=== PATIENT | male | born 1965 | race Two or more races ===

== ENCOUNTER 2024-12-30 15:39 | Emergency (ER) | payer MEDICAID, OTHER ==
[~2024-12-30] VITALS: Ht 172.7 cm; Wt 85.3 kg
--- NOTE | 2024-12-30 16:04 | ED.PDOC ---
Eye-HPI HPI Comments 59 year old male with PMHx DM presents to ED with chief complaint blurry vision since 1000 today. Pt denies eye pain. Pt denies use of contacts but does wear reading glasses. Pt states his PCP is out office and he needs Metformin refilled. Pt last took his Metformin yesterday. No other signs/symptoms or history reported. Chief Complaint: Eye Problem Time Seen by MD: 15:55 Reviewed Notes: Nurses Notes, Medications, Allergies Allergies: Coded Allergies: NO KNOWN ALLERGIES (Unverified , 12/30/24) Home Meds Reported Medications Metformin Hydrochloride (Metformin Hcl) 500 Mg Tab, 1000 MG PO IBID for 30 Days, MG 12/30/24 Information Source: Patient Mode of Arrival: Ambulatory Timing: Hours Duration: Since onset Prehospital treatment: None Eye Location: Bilateral Lids: Normal Conjunctiva: Normal Cornea: Normal Pupils: Normal EOM: Normal Onset: Spontaneous Throat Exposed to: None History of: None Modifying factors: Nothing Associated signs and symptoms: None Past Medical History PAST MEDICAL HISTORY: DM Surgical History: Denies all surgeries Family History Family History: Unknown Social History Smoker: Non-Smoker Alcohol: Denies ETOH Use Drugs: Denies Drug Use Lives In: Home Constitutional: denies: chills, diaphoresis, fatigue, fever, malaise, sweats, weakness, others EENTM: reports: blurred vision; denies: double vision, ear bleeding, ear discharge, ear drainage, ear pain, ear ringing, eye pain, eye redness, hearing loss, mouth pain, mouth swelling, nasal discharge, nose bleeding, nose congestion, nose pain, photophobia, tearing, throat pain, throat swelling, voice changes, others Respiratory: denies: cough, hemoptysis, orthopnea, SOB at rest, shortness of breath, SOB with excertion, stridor, wheezing, others Cardiovascular: denies: chest pain, dizzy spells, diaphoresis, Dyspnea on exertion, edema, irregular heart beat, left arm pain, lightheadedness, palpitat ions, PND, syncope, others Gastrointestinal: denies: abdomen distended, abdominal pain, blood streaked bow els, constipated, diarrhea, dysphagia, difficulty swallowing, hematemesis, melena, nausea, poor appetite, poor fluid intake, rectal bleeding, rectal pain, vomiting, others Genitourinary: denies: burning, dysuria, flank pain, frequency, hematuria, incontinence, penile discharge, penile sore, pain, testicle pain, testicle swelling, urgency, others Neurological: denies: dizziness, fainting, headache, left sided numbness, left sided weakness, numbness, paresthesia, pre-existing deficit, right sided numbness, right sided weakness, seizure, speech problems, tingling, tremors, weakness, others Musculoskeletal: denies: back pain, gout, joint pain, joint swelling, muscle pain, muscle stiffness, neck pain, others Integumetry: denies: bruises, change in color, change in hair/nails, dryness, laceration, lesions, lumps, rash, wounds, others Allergic/Immunocompromised: denies: Difficulty Healing, Frequent Infections, Hives, Itching, others Hematologic/Lymphatic: denies: anemia, blood clots, easy bleeding, easy bruising, swollen glands, others Endocrine: denies: excessive hunger, excessive sweating, excessive thirst, excessive urination, flushing, intolerance to cold, intolerance to heat, unexplained weight gain, unexplained weight loss, others Psychiatric: denies: anxiety, bipolar disorder, depression, hopeless, panic disorder, schizophrenia, sleepless, suicidal, others All Other Systems: Reviewed and Negative Physical Exam General Appearance: Mild Distress (Patient was in moderate distress due to concerns about visual change.), Normal HEENT: Normal ENT Inspection, Pharynx Normal, TMs Normal, Other (Unremarkable evaluation of bilateral globes.) Neck: Full Range of Motion, Non-Tender, Normal, Normal Inspection Respiratory: Chest Non-Tender, Lungs Clear, No Accessory Muscle Use, No Respiratory Distress, Normal Breath Sounds Cardiovascular: No Edema, No JVD, No Murmur, No Gallop, Normal Peripheral Pulses, Regular Rate/Rhythm Breast Exam: Deferred Gastrointestinal: No Organomegaly, Non Tender, No Pulsatile Mass, Normal Bowel Sounds, Soft Genitalia: Deferred Pelvic: Deferred Rectal: Deferred Extremities: No calf tenderness, Normal capillary refill, Normal inspection, Normal range of motion, Non-tender, No pedal edema Musculoskeletal : Apperance: Normal Neurologic: Alert, No Motor Deficits, Normal Affect, Normal Mood, No Sensory Deficits Cerebellar Function: Normal Reflexes: Normal Skin: Dry, Normal Color, Warm Lymphatic: No Adenopathy Was a procedure done? Was a procedure done?: No EENT DIFF Eye: Other (Vitreous floater, intraorbital neoplasm, optic nerve compression, poorly controlled diabetes myelitis) Ear: N/A Nose: N/A Mouth: N/A Sore Throat: N/A X-Ray, Labs, Meds, VS Vital Signs Date Time Temp Pulse Resp B/P (MAP) Pulse Ox O2 Delivery O2 Flow Rate FiO2 12/30/24 15:59 97.6 73 20 139/78 (98) 95 97.6 Lab Test 12/30/24 18:57 12/30/24 16:07 12/30/24 15:54 Range/Units Urine Color Light-yellow Yellow Urine Clarity Clear Clear Urine pH 5.0 5.0-9.0 Urine Specific [place] 1.029 1.001-1.035 Urine Protein Negative Negative Urine Ketones Negative Negative Urine Blood Negative Negative /uL Urine Nitrite Negative Negative Urine Bilirubin Negative Negative Urine Urobilinogen Normal Negative mg/dL Urine Leukocyte Esterase Negative Negative /uL Urine RBC <1 0 - 3 /hpf Urine Microscopic WBC < 1 0-3 /HPF Urine Squamous Epithelial Cells None seen <5 /hpf Urine Bacteria None seen None Seen /hpf Urine Glucose 4+ H Normal mg/dL Urine Opiates Screen Neg NEGATIVE Urine Fentanyl Screen Neg NEGATIVE Urine Barbiturates Screen Neg NEGATIVE Urine Phencyclidine Screen Neg NEGATIVE Urine Amphetamines Screen Neg NEGATIVE Urine Benzodiazepines Screen Neg NEGATIVE Urine Cocaine Screen Neg NEGATIVE Urine Cannabinoids Screen Neg NEGATIVE White Blood Count 8.7 4.4-10.8 10^3/uL Red Blood Count 4.94 4.5-5.90 10^6/uL Hemoglobin 15.1 13.5-17.5 g/dL Hematocrit 44.3 41.0-53.0 % Mean Corpuscular Volume 89.8 80.0-100.0 fL Mean Corpuscular Hemoglobin 30.6 28.0-32.0 pg Mean Corpuscular Hemoglobin Concent 34.1 32.0-36.0 g/dL Red Cell Distribution Width 12.8 11.8-14.3 % Platelet Count 240 140-450 10^3/uL Mean Platelet Volume 9.0 6.9-10.8 fL Neutrophils (%) (Auto) 55.9 37.0-80.0 % Lymphocytes (%) (Auto) 35.0 10.0-50.0 % Monocytes (%) (Auto) 7.0 0.0-12.0 % Eosinophils (%) (Auto) 1.1 0.0-7.0 % Basophils (%) (Auto) 1.0 0.0-2.0 % Neutrophils # (Auto) 4.9 1.6-8.6 10 ^3/uL Lymphocytes # (Auto) 3.0 0.4-5.4 10 ^3/uL Monocytes # (Auto) 0.6 0-1.3 10 ^3/uL Eosinophils # (Auto) 0.1 0-0.8 10 ^3/uL Basophils # (Auto) 0.1 0-0.2 10 ^3/uL Nucleated Red Blood Cells 0.2 % Sodium Level 136 136-145 mmol/L Potassium Level 4.4 3.5-5.1 mmol/L Chloride Level 99 98-107 mmol/L Carbon Dioxide Level 29 20-31 mmol/L Anion Gap 8 5-15 Blood Urea Nitrogen 15 9-23 mg/dL Creatinine 1.03 0.700-1.30 mg/dL Glomerular Filtration Rate Calc 84 >90 mL/min BUN/Creatinine Ratio 14.6 10.0-20.0 Serum Glucose 303 H 74-106 mg/dL Calcium Level 10.2 8.7-10.4 mg/dL Total Bilirubin 0.4 0.2-1.0 mg/dL Aspartate Amino Transferase (AST) 25 13-40 U/L Alanine Aminotransferase (ALT) 34 7-40 U/L Alkaline Phosphatase 119 H 46-116 U/L Total Protein 7.6 5.7-8.2 g/dL Albumin 4.7 3.2-4.8 g/dL Lipase 40 12-53 U/L Plasma/Serum Blood Alcohol < 3.0 <10 mg/dL POC Glucose 287 H 70-106 mg/dl [address] [address] Ph: [phone] DIAGNOSTIC IMAGING Diagnostic Imaging Report : [id number] Signed PATIENT: STEFANIA LANG ACCT: [id number] UNIT: [id number] : 1965 LOC: ER ROOM / BED: / AGE / SEX: 59 / M ADM STATUS: REG ER SERVICE [id number] ORDERING PHYSICIAN: HAYDEN MATTSON PAC PROCEDURE(s): OB1CT - ORBITS WO CONTRAST REASON: Spontaneous blurred vision ORDER NUMBER(s): [id number], ACCESSION NUMBER(s): [id number] HISTORY: Spontaneous blurred vision TECHNIQUE: CT ORBITS WO CONTRAST Nonenhanced axial images through the facial bones with coronal and sagittal MPR. COMPARISON: None Radiation Dose Information: CT Dose: CTDI volume is 66.97 mGy. Dose-length product is 693.28 mGy*cm FINDINGS: Mandible: Limited evaluation. Temporomandibular joints normal bilaterally Maxilla: Limited evaluation Pterygoid plates: Intact Zygomatic processes: Intact bilaterally. Zygomatic arches: Intact Orbits: Symmetrical limited evaluation without IV contrast Sinuses: Normal Facial swelling: None identified IMPRESSION: 1. Orbits appeared normal bilaterally. Consider nonemergent MRI head . Radiation optimization: All CT scans at this facility use at least one of these dose optimization techniques: automated exposure control mA and/or kV adjustment per patient size (includes targeted exams where dose is matched to clinical indication) or iterative reconstruction. HS:Y ATED BY: POOJA RICHARDS Jr., DO DICTATED DATE/TIME: 12/30/241634 SIGNED BY: POOJA RICHARDS Jr., SIGNED DATE/TIME: 12/30/241634 CC: X-Ray, Labs, Meds, VS Comment Studies performed the ED were evaluated by me personally. Serum laboratories were remarkable for a elevated glucose of 303. Additional incidental finding of an elevated alk-phos was noted. Patient declined fluids or insulin facility. Advised patient I will fill his metformin prescription, but the patient needs to follow up with primary care provider for discussions related to management of his diabetes concerns. Additionally, I advised the patient to follow up with Ophthalmology for bilateral eye evaluation. Time of 1ST Reevaluation: 20:37 Reevaluation 1ST: Improved Consultation: PCP, Other (Ophthalmology) Patient Education/Counseling: Diagnosis, Treatment Family Education/Counseling: Diagnosis, Treatment, No Family Present Departure 1 Departure Time of Disposition: 20:38 Impression: Primary Impression: Hyperglycemia due to diabetes mellitus Additional Impression: Blurred vision, bilateral Disposition: 01 HOME / SELF CARE / HOMELESS Condition: Stable Additional Instructions: Advised patient utilize his medication as directed. Patient should follow up with Ophthalmology in the next day or two for definitive evaluation of blurred vision concerns. e-Prescriptions Metformin Hydrochloride (Metformin Hcl) 1,000 Mg Tab 1 TAB PO BID, #60 TAB 0 Refills Prov: HAYDEN MATTSON 12/30/24 Discharged With: Self, Friend Critical Care Note Critical Care Time?: No Stability Stability form required: No Heart Score Heart Score: Heart Score Response (Comments) Value History N/A 0 EKG N/A 0 Age N/A 0 Risk Factors N/A 0 Troponin N/A 0 Total 0 I personally scribed for HAYDEN MATTSON PAC ([employer]) on 12/30/24 at 16:04. Electronically submitted by Marcella Mcduffie ([employer]). I personally scribed for HAYDEN MATTSON PAC ([employer]) on 12/30/24 at 16:40. Electronically submitted by Marcella Mcduffie ([employer]). HAYDEN MATTSON PAC Dec 30, 2024 16:04
[2024-12-30 16:14] LABS: Basophils # (auto) 0.1 10 ^3/uL (0-0.2); Eosinophils # (auto) 0.1 10 ^3/uL (0-0.8); Eosinophils % (auto) 1.1 % (0.0-7.0); Hematocrit 44.3 % (41.0-53.0); Hemoglobin 15.1 g/dL (13.5-17.5); Mean Corpuscular Hemoglobin 30.6 pg (28.0-32.0); Mean Corpuscular Hgb Conc. 34.1 g/dL (32.0-36.0); Mean Corpuscular Volume 89.8 fL (80.0-100.0); Monocytes # (auto) 0.6 10 ^3/uL (0-1.3); Neutrophils # (auto) 4.9 10 ^3/uL (1.6-8.6); Neutrophils % (auto) 55.9 % (37.0-80.0); Nucleated Red Blood Cells % 0.2 %; Platelet Count (auto) 240 10^3/uL (140-450); Red Blood Cells 4.94 10^6/uL (4.5-5.90); Red Cell Distribution Width 12.8 % (11.8-14.3); White Blood Cell 8.7 10^3/uL (4.4-10.8)
--- NOTE | 2024-12-30 16:37 | DVH ---
HISTORY: Spontaneous blurred vision TECHNIQUE: CT ORBITS WO CONTRAST Nonenhanced axial images through the facial bones with coronal and sagittal MPR. COMPARISON: None Radiation Dose Information: CT Dose: CTDI volume is 66.97 mGy. Dose-length product is 693.28 mGy*cm FINDINGS: Mandible: Limited evaluation. Temporomandibular joints normal bilaterally Maxilla: Limited evaluation Pterygoid plates: Intact Zygomatic processes: Intact bilaterally. Zygomatic arches: Intact Orbits: Symmetrical limited evaluation without IV contrast Sinuses: Normal Facial swelling: None identified IMPRESSION: 1. Orbits appeared normal bilaterally. Consider nonemergent MRI head . Radiation optimization: All CT scans at this facility use at least one of these dose optimization osmany hniques: automated exposure control mA and/or kV adjustment per patient size (includes targeted exam s where dose is matched to clinical indication) or iterative reconstruction. HS:Y
[2024-12-30 16:39] LABS: Alanine Aminotransferase 34 U/L (7-40); Albumin 4.7 g/dL (3.2-4.8); Alkaline Phosphatase 119 U/L (46-116); Anion Gap 8 (5-15); Aspartate Aminotransferase 25 U/L (13-40); BUN/Creatinine Ratio 14.6 (10.0-20.0); Blood Alcohol < 3.0 mg/dL (<10); Blood Urea Nitrogen 15 mg/dL (9-23); Calcium 10.2 mg/dL (8.7-10.4); Carbon Dioxide 29 mmol/L (20-31); Chloride 99 mmol/L (98-107); Glucose 303 mg/dL (74-106); Potassium 4.4 mmol/L (3.5-5.1); Sodium 136 mmol/L (136-145); Total Protein 7.6 g/dL (5.7-8.2)
[2024-12-30 16:40] LABS: Bilirubin, Total 0.4 mg/dL (0.2-1.0)
[2024-12-30 16:50] LABS: Lipase 40 U/L (12-53)
[2024-12-30 19:30] LABS: Urine Bacteria None Seen /hpf (None Seen)
[2024-12-30 19:52] LABS: Urine Blood Negative /uL (Negative); Urine Clarity Clear (Clear); Urine Color Light-Yellow (Yellow); Urine Protein, UAD Negative (Negative); Urine Specific Gravity 1.029 (1.001-1.035); Urine Squamous Epithelial Cell None Seen /hpf (<5); Urine Urobilinogen Normal (Negative); Urine WBC < 1 /HPF (0-3)
[2024-12-30 19:56] LABS: Amphetamine Screen, Urine Neg (NEGATIVE); Barbiturate Scree,Urine Neg (NEGATIVE); Benzodiazephine Screen, Urine Neg (NEGATIVE); Cannabinoid Screen, Urine Neg (NEGATIVE); Cocaine Screen, Urine Neg (NEGATIVE); Opiate Scree,Urine Neg (NEGATIVE); Phencyclidine Screen, Urine Neg (NEGATIVE)
[2024-12-30] MEDS: SODIUM CHLORIDE 0.9% 1,000 ML IV ONE (20:28)
[2024-12-30] MEDS ORDERED: METF-370 PO (20:30)
[2024-12-30] MEDS ORDERED: METF-372 PO (20:39)
[2024-12-30] MEDS: InsuLIN REG 1unit/0.01ml Soln (100units/ml) IV ONE (20:45)
[2024-12-30 20:47] VITALS: BP 139/77; PULSE 76; RESP 18; TEMP 97.8; O2SAT 98
== END 2024-12-30 20:50 | disposition home or self-care (01) ==
LOC: ER 15:39
DX: E11.65 Type 2 diabetes mellitus with hyperglycemia (principal); Z79.899 Other long term (current) drug therapy
CPT/HCPCS: 36415; 70480; 80053; 80307; 80320; 81001; 82947; 82962; 83690; 85025

== ENCOUNTER → 2025-01-15 | Outpatient (CLI) | payer MEDICAID ==
[~2025-01-15] MED LIST: METF-370 PO; METF-372 PO
[2025-01-15 07:24] LABS: Urine Bacteria None Seen /hpf (None Seen)
[2025-01-15 07:53] LABS: Urine Blood Negative /uL (Negative); Urine Clarity Clear (Clear); Urine Color Light-Yellow (Yellow); Urine Protein, UAD Negative (Negative); Urine Specific Gravity 1.034 (1.001-1.035); Urine Squamous Epithelial Cell None Seen /hpf (<5); Urine Urobilinogen Normal (Negative); Urine WBC < 1 /HPF (0-3); Urine pH 5.5 (5.0-9.0)
[2025-01-15 08:05] LABS: Basophils # (auto) 0.1 10 ^3/uL (0-0.2); Basophils % (auto) 0.7 % (0.0-2.0); Eosinophils # (auto) 0.1 10 ^3/uL (0-0.8); Eosinophils % (auto) 1.5 % (0.0-7.0); Hemoglobin 15.1 g/dL (13.5-17.5); Lymphocytes # (auto) 2.5 10 ^3/uL (0.4-5.4); Lymphocytes % (auto) 32.2 % (10.0-50.0); Mean Corpuscular Hemoglobin 30.9 pg (28.0-32.0); Mean Corpuscular Hgb Conc. 34.4 g/dL (32.0-36.0); Mean Corpuscular Volume 89.8 fL (80.0-100.0); Monocytes # (auto) 0.9 10 ^3/uL (0-1.3); Monocytes % (auto) 11.9 % (0.0-12.0); Neutrophils # (auto) 4.1 10 ^3/uL (1.6-8.6); Neutrophils % (auto) 53.7 % (37.0-80.0); Nucleated Red Blood Cells % 0.2 %; Platelet Count (auto) 207 10^3/uL (140-450); Red Cell Distribution Width 13.1 % (11.8-14.3); White Blood Cell 7.7 10^3/uL (4.4-10.8)
[2025-01-15 08:17] LABS: Creatinine, Urine 85.91 mg/dL (30.0-125.0)
[2025-01-15 08:25] LABS: Alanine Aminotransferase 36 U/L (7-40); Alkaline Phosphatase 155 U/L (46-116); Anion Gap 10 (5-15); Carbon Dioxide 28 mmol/L (20-31); Chloride 102 mmol/L (98-107); Glucose 270 mg/dL (74-106); Potassium 4.1 mmol/L (3.5-5.1); Sodium 140 mmol/L (136-145)
[2025-01-15 08:26] LABS: BUN/Creatinine Ratio 18.8 (10.0-20.0); Blood Urea Nitrogen 16 mg/dL (9-23); LDL Cholesterol 86 mg/dL (< 100); Total Protein 7.5 g/dL (5.7-8.2); Triglycerides 298 mg/dL (< 150)
[2025-01-15 08:27] LABS: Albumin 4.6 g/dL (3.2-4.8); Aspartate Aminotransferase 20 U/L (13-40)
[2025-01-15 08:28] LABS: Cholesterol 150 mg/dL (< 200)
[2025-01-15 08:29] LABS: Bilirubin, Total 0.3 mg/dL (0.2-1.0); HDL Cholesterol 36 mg/dL (40-59)
[2025-01-15 10:37] LABS: Folate (Folic Acid) 20.34 ng/mL (>5.38)
== END | disposition home or self-care (01) ==
LOC: LAB 06:07
PROVIDERS: ATTEND Licensed Practical Nurse
DX: E11.9 Type 2 diabetes mellitus without complications (principal); E55.9 Vitamin D deficiency, unspecified; Z12.11 Encounter for screening for malignant neoplasm of colon; Z13.1 Encounter for screening for diabetes mellitus; Z13.220 Encounter for screening for lipoid disorders; Z13.6 Encounter for screening for cardiovascular disorders; Z13.29 Encounter for screening for other suspected endocrine disorder; Z00.00 Encounter for general adult medical examination without abnormal findings
CPT/HCPCS: 36415; 80053; 80061; 81001; 82043; 82274; 82306; 82570; 82607; 82746; 83036; 84443; 85025

== ENCOUNTER → 2025-06-25 | Outpatient (CLI) | payer MEDICAID ==
[2025-06-25 15:37] LABS: Hematocrit 42.0 % (41.0-53.0); Hemoglobin 14.5 g/dL (13.5-17.5); Mean Corpuscular Hemoglobin 31.0 pg (28.0-32.0); Mean Corpuscular Volume 89.6 fL (80.0-100.0); Nucleated Red Blood Cells % 0.2 %; Urine Protein, UAD Negative (Negative)
[2025-06-25 15:50] LABS: Alanine Aminotransferase 30 U/L (7-40); Albumin 4.4 g/dL (3.2-4.8); Alkaline Phosphatase 93 U/L (46-116); Anion Gap 10 (5-15); BUN/Creatinine Ratio 14.0 (10.0-20.0); Bilirubin, Total 0.2 mg/dL (0.2-1.0); Blood Urea Nitrogen 13 mg/dL (9-23); Calcium 9.2 mg/dL (8.7-10.4); Carbon Dioxide 27 mmol/L (20-31); Chloride 103 mmol/L (98-107); Glucose 157 mg/dL (74-106); Potassium 4.4 mmol/L (3.5-5.1); Sodium 140 mmol/L (136-145); Total Protein 7.4 g/dL (5.7-8.2)
== END | disposition home or self-care (01) ==
LOC: LAB 14:27
PROVIDERS: ATTEND Student in an Organized Health Care Education/Training Program
DX: I10 Essential (primary) hypertension (principal); E11.9 Type 2 diabetes mellitus without complications
CPT/HCPCS: 36415; 80053; 81001; 83036; 84443; 85025

== ENCOUNTER 2025-08-20 08:09 | Emergency (ER) | payer SELFPAY ==
[~2025-08-20] VITALS: Ht 157.5 cm; Wt 85.4 kg
--- NOTE | 2025-08-20 09:19 | ED.PDOC ---
History of Present Illness(SKN HPI Comments The patient with diabetes presents for evaluation of a "roncha." The patient reports no fever. The patient takes metformin for diabetes and a small pill for cholesterol. The patient is also taking a medication for cholesterol as stated but not specified by name. No further family history, allergies, or social history was discussed. The patient states on having the generalized rash for the past three days. Denies that the rash is painful, just itchy Denies ever having this before Patient denies any fever, cough, difficulty swallowing, or shortness of breath Denies fever chills night sweats nausea vomiting diarrhea Denies persistent loss of appetite nor unintentional weight loss over the past 3 months Denies history of STI Denies cough and cold-like symptoms Denies recent travel Denies sick contact with similar rash Denies new topical creams/lotions/shampoos/detergents Denies noticing any insects Denies bruising bleeding anywhere Denies chronic skin issues or family history of skin issues Chief Complaint: Rash Time Seen by MD: 09:00 History of Present Illness: Nurses Notes, Medications, Allergies Allergies: Coded Allergies: NO KNOWN ALLERGIES (Unverified , 12/30/24) Home Meds Active Scripts Diphenhydramine Hcl (BENADRYL CAPSULE) 25 Mg Cp, 25 MG PO Q8HP PRN for 5 Days, #15 CAP 0 Refills Prov:CHIKA MENDEZ NP 08/20/25 Famotidine (Acid Control Maximum Stre) 20 Mg Tab, 40 MG PO DAILY for 5 Days, #10 TAB 0 Refills Prov:CHIKA MENDEZ NP 08/20/25 Prednisone (Prednisone) 20 Mg Tab, 40 MG PO DAILY for 5 Days, #10 TAB 0 Refills Prov:CHIKA MENDEZ NP 08/20/25 Metformin Hydrochloride (Metformin Hcl) 1,000 Mg Tab, 1 TAB PO BID, #60 TAB 0 Re fills Prov:HAYDEN MATTSON 12/30/24 Reported Medications Metformin Hydrochloride (Metformin Hcl) 500 Mg Tab, 1000 MG PO IBID for 30 Days, MG 12/30/24 Information Source: Patient Mode of Arrival: Ambulatory Severity: Moderate Timing: Days Duration: Since onset, Days Prehospital treatment: None Location: Generalized Mechanism: Spontaneous Onset Developed: Rash Object: None Condition of Object: None Wound Type: None History of: None Associated Signs and Symptoms: None Past Medical History PAST MEDICAL HISTORY: DM Surgical History: Denies all surgeries Family History Family History: Reviewed,noncontributory to illness, Unknown Social History Smoker: Non-Smoker Alcohol: Denies ETOH Use Drugs: Denies Drug Use Lives In: Home Constitutional: denies: chills, diaphoresis, fatigue, fever, malaise, sweats, weakness, others EENTM: denies: blurred vision, double vision, ear bleeding, ear discharge, ear drainage, ear pain, ear ringing, eye pain, eye redness, hearing loss, mouth pain, mouth swelling, nasal discharge, nose bleeding, nose congestion, nose pain, photophobia, tearing, throat pain, throat swelling, voice changes, others Respiratory: denies: cough, hemoptysis, orthopnea, SOB at rest, shortness of breath, SOB with excertion, stridor, wheezing, others Cardiovascular: denies: chest pain, dizzy spells, diaphoresis, Dyspnea on exertion, edema, irregular heart beat, left arm pain, lightheadedness, palpitations, PND, syncope, others Gastrointestinal: denies: abdomen distended, abdominal pain, blood streaked bowels, constipated, diarrhea, dysphagia, difficulty swallowing, hematemesis, melena, nausea, poor appetite, poor fluid intake, rectal bleeding, rectal pain, vomiting, others Genitourinary: denies: burning, dysuria, flank pain, frequency, hematuria, incontinence, penile discharge, penile sore, pain, testicle pain, testicle swelling, urgency, others Neurological: denies: dizziness, fainting, headache, left sided numbness, left sided weakness, numbness, paresthesia, pre-existing deficit, right sided numbness, right sided weakness, seizure, speech problems, tingling, tremors, weakness, others Musculoskeletal: denies: back pain, gout, joint pain, joint swelling, muscle pain, muscle stiffness, neck pain, others Integumetry: reports: rash (generalized); denies: bruises, change in color, change in hair/nails, dryness, laceration, lesions, lumps, wounds, others Allergic/Immunocompromised: denies: Difficulty Healing, Frequent Infections, Hives, Itching, others Hematologic/Lymphatic: denies: anemia, blood clots, easy bleeding, easy bruising, swollen glands, others Endocrine: denies: excessive hunger, excessive sweating, excessive thirst, excessive urination, flushing, intolerance to cold, intolerance to heat, unexplained weight gain, unexplained weight loss, others Psychiatric: denies: anxiety, bipolar disorder, depression, hopeless, panic disorder, schizophrenia, sleepless, suicidal, others All Other Systems: Reviewed and Negative Physical Exam Exam Comments Scattered hives throughout the torso in the bilateral lower extremities. No airway obstructions General Appearance: No Apparent Distress, Normal HEENT: Normal ENT Inspection, Pharynx Normal, TMs Normal Neck: Full Range of Motion, Non-Tender, Normal, Normal Inspection Respiratory: Chest Non-Tender, Lungs Clear, No Accessory Muscle Use, No Respiratory Distress, Normal Breath Sounds Cardiovascular: No Edema, No JVD, No Murmur, No Gallop, Normal Peripheral Pulses, Regular Rate/Rhythm Breast Exam: Deferred Gastrointestinal: No Organomegaly, Non Tender, No Pulsatile Mass, Normal Bowel Sounds, Soft Genitalia: Deferred Pelvic: Deferred Rectal: Deferred Extremities: No calf tenderness, Normal capillary refill, Normal inspection, Normal range of motion, Non-tender, No pedal edema Musculoskeletal : Apperance: Normal Neurologic: Alert, cold header II-XII nml as Tested, No Motor Deficits, Normal Affect, Normal Mood, No Sensory Deficits Cerebellar Function: Normal Reflexes: Normal Skin: Dry, Normal Color, Warm Lymphatic: No Adenopathy Was a procedure done? Was a procedure done?: No Differential Diagnosis (INTG) Differential Diagnosis: Abscess, Atopic dermatitis, Cellulitis, Contact Dermatitis, Urticaria X-Ray, Labs, Meds, VS Vital Signs Date Time Temp Pulse Resp B/P (MAP) Pulse Ox O2 Delivery O2 Flow Rate FiO2 08/20/25 11:25 98.0 78 16 138/78 (98) 98 98.0 08/20/25 10:02 98.1 76 16 128/82 (97) 97 98.1 08/20/25 10:02 76 16 97 Room Air 08/20/25 08:10 98.4 80 12 130/85 97 98.4 Current Medications Medications (Trade) Dose Ordered Sig/Estephania Route Start Time Stop Time Status Last Admin Methylprednisolone Sodium Succinate (Solu Medrol) 125 mg ONCE ONCE IM 08/20/25 09:30 08/20/25 09:31 DC 08/20/25 09:34 Diphenhydramine HCl (Benadryl Capsule) 25 mg ONCE ONCE PO 08/20/25 09:30 08/20/25 09:31 DC 08/20/25 09:33 Famotidine (Pepcid Tablet) 40 mg ONCE ONCE PO 08/20/25 09:30 08/20/25 09:31 DC 08/20/25 09:33 X-Ray, Labs, Meds, VS Comment Patient arrives alert and oriented, ABC's intact, afebrile, vital signs stable, saturating well in room air Pt presents ED for an allergic reaction. Solu-Medrol and Pepcid and Benadryl administered in ED for treatment. Patient reports significant improvement in symptoms following treatment. Patient was monitored in the ED for an extended amount of time. Medrol Dosepak prescribed for additional treatment. Patient was instructed to take hydroxyzine and use calamine lotion as needed for itchiness Follow-up with PCP in 1 to 2 days. Patient needs umbrella supervisor referral for further testing Return to ED if symptoms persist, or sooner if symptoms worsen Patient is stable for discharge at this time. External notes reviewed. Test results and diagnostic imaging interpreted. All diagnostic findings, discharge care, education and instructions provided Follow-up with PCP in 2 to 3 days Patient verbalized understanding and agreed to treatment plan Vital signs stable, afebrile, no acute distress noted Patient ambulatory with strong steady gait Advised to return precautions for any new or worsening symptoms, return to ER immediately for re-evaluation Patient is aware that the purpose of this visit was for an acute medical emergency requiring emergent stabilization. Chronic conditions, including malignancies have not been ruled out. Patient is instructed to follow up with PCP as directed and discharge instructions for continued care and workup. If unable to arrange follow-up, patient is to return to the emergency department for reassessment. Patient (parent or legal guardian if applicable) was given verbal and written discharge instructions and acknowledges understanding. Additional MDM Review of External, Non-ED records: External records reviewed. Discussion with independent historian (EMS, family) history obtained from the patient/parents (if applicable) at bedside Chronic conditions affecting care: None Social determinants of health affecting care: None Consideration of admission (observation or admission): I considered escalation of care to admission for this patient, however given the reassuring workup, the patient is safe for outpatient management. Discussion with the Radiology: No Tests considered but not performed: Prescription medication considered but not given: Time of 1ST Reevaluation: 09:30 Reevaluation 1ST: Improved Patient Education/Counseling: Diagnosis, Treatment, Prognosis Family Education/Counseling: No Family Present SEPSIS Sepsis Screen Date sepsis recognized/suspect: Aug 20, 2025 Time Sepsis recognized/suspect: 08 Recent Procedure: No On Antibiotic Therapy: No Respiratory Rate >20: No Heart Rate >90: No Temp<36 C (96.8 F) or >38.3 C: No SBP <90 or MAP <65 mmHG: No New Acute Mental Status Change: No Is the patient on CPAP, BIPAP,: No Vital Signs Date Time Temp Pulse Resp B/P (MAP) Pulse Ox O2 Delivery O2 Flow Rate FiO2 08/20/25 11:25 98.0 78 16 138/78 (98) 98 98.0 08/20/25 10:02 98.1 76 16 128/82 (97) 97 98.1 08/20/25 10:02 76 16 97 Room Air 08/20/25 08:10 98.4 80 12 130/85 97 98.4 Departure 1 Departure Time of Disposition: 11:19 Impression: Primary Impression: Allergic reaction Qualified Codes: T78.40XA - Allergy, unspecified, initial encounter Disposition: HOME / SELF CARE / HOMELESS Condition: Stable e-Prescriptions Diphenhydramine Hcl (BENADRYL CAPSULE) 25 Mg Cp 25 MG PO Q8HP PRN for 5 Days, #15 CAP 0 Refills Prov: CHIKA MENDEZ NP 08/20/25 Famotidine (Acid Control Maximum Stre) 20 Mg Tab 40 MG PO DAILY for 5 Days, #10 TAB 0 Refills Prov: CHIKA MENDEZ OB TECH 08/20/25 Prednisone (Prednisone) 20 Mg Tab 40 MG PO DAILY for 5 Days, #10 TAB 0 Refills Prov: CHIKA MENDEZ OB TECH 08/20/25 Discharged With: Self Critical Care Note Critical Care Time?: No Stability Stability form required: No Heart Score Heart Score: Heart Score Response (Comments) Value History N/A 0 EKG N/A 0 Age N/A 0 Risk Factors N/A 0 Troponin N/A 0 Total 0 I personally scribed for IVONNE JAUREGUI MD ([email or web address]) on 08/20/25 at 09:19. Electronically submitted by Gopi Funk ([facility]). I personally scribed for IVONNE JAUREGUI MD ([facility]) on 08/20/25 at 09:36. Electronically submitted by Gopi Funk ([facility]). I personally scribed for IVONNE JAUREGUI MD ([facility]) on 08/20/25 at 09:41. Electronically submitted by Gopi Funk ([facility]). IVONNE JAUREGUI MD Aug 20, 2025 09:19 CHIKA MENDEZ NP Aug 20, 2025 11:21
[2025-08-20] MEDS: FAMOTIDINE 20 MG TAB PO ONE (09:33)
[2025-08-20] MEDS: methylPREDNISolone SOD SUCC 125 MG/2 ML VL IM ONE (09:34)
[2025-08-20] MEDS ORDERED: DIPH25CA51 PO (11:21)
[2025-08-20] MEDS ORDERED: FAMO20TA58 PO (11:21)
[2025-08-20] MEDS ORDERED: PRED20TA2 PO (11:21)
[2025-08-20 11:25] VITALS: BP 138/78; PULSE 78; RESP 16; TEMP 98; O2SAT 98
== END 2025-08-20 11:26 | disposition home or self-care (01) ==
LOC: ER 08:09
DX: T78.49XA Other allergy, initial encounter (principal); E11.9 Type 2 diabetes mellitus without complications; Z79.84 Long term (current) use of oral hypoglycemic drugs; Z79.899 Other long term (current) drug therapy; X58.XXXA Exposure to other specified factors, initial encounter
CPT/HCPCS: 96372; 99283; J2919

== ENCOUNTER 2025-08-30 09:36 | Emergency (ER) | payer SELFPAY ==
[~2025-08-30] VITALS: Ht 175.3 cm; Wt 85.2 kg
[~2025-08-30 09:36] MED LIST changes: +DIPH25CA51 PO; +FAMO20TA58 PO; +PRED20TA2 PO
--- NOTE | 2025-08-30 10:00 | ED.PDOC ---
History of Present Illness(SKN HPI Comments A 60 YEAR OLD MALE PRESENTS TO THE ED WITH COMPLAINT OF RASH. PATIENT STATES HE HAS BEEN EXPERIENCING A GENERALIZED ITCHY RASH FOR THE PAST 2 DAYS. PATIENT IS CONCERNED HE MAY BE HAVING AN ALLERGIC REACTION. PATIENT DENIES FEVER, CHILLS, SHORTNESS OF BREATH, CHEST PAIN, ABDOMINAL PAIN, NAUSEA, VOMITING, HEADACHE, OR OTHER COMPLAINTS. NO OTHER SYMPTOMS OR MODIFYING FACTORS AT THIS TIME. PATIENT IS ALERT, ORIENTED X 4, AND HAS STEADY GAIT. Chief Complaint: Rash Time Seen by MD: 09:44 History of Present Illness: Nurses Notes, Medications, Allergies Allergies: Coded Allergies: NO KNOWN ALLERGIES (Unverified , 12/30/24) Home Meds Active Scripts Diphenhydramine Hcl (BENADRYL CAPSULE) 25 Mg Cp, 25 MG PO Q8HP PRN for 5 Days, #15 CAP 0 Refills Prov:CHIKA MENDEZ [employer] 08/20/25 Famotidine (Acid Control Maximum Stre) 20 Mg Tab, 40 MG PO DAILY for 5 Days, #10 TAB 0 Refills Prov:CHIKA MENDEZ [employer] 08/20/25 Prednisone (Prednisone) 20 Mg Tab, 40 MG PO DAILY for 5 Days, #10 TAB 0 Refills Prov:CHIKA MENDEZ [employer] 08/20/25 Metformin Hydrochloride (Metformin Hcl) 1,000 Mg Tab, 1 TAB PO BID, #60 TAB 0 Refills Prov:HAYDEN MATTSON PAC 12/30/24 Reported Medications Metformin Hydrochloride (Metformin Hcl) 500 Mg Tab, 1000 MG PO IBID for 30 Days, MG 12/30/24 Information Source: Patient Mode of Arrival: Ambulatory Severity: Moderate Timing: Days Duration: Since onset, Days Prehospital treatment: None Location: Generalized Mechanism: Spontaneous Onset Developed: Rash Occurence: Indoors Object: None Condition of Object: None Retained Foreign Body: No Wound Type: None Immunization Status of Animal: NA History of: None Associated Signs and Symptoms: Redness Past Medical History PAST MEDICAL HISTORY: DM Surgical History: Denies all surgeries Family History Family History: Reviewed,noncontributory to illness Social History Smoker: Non-Smoker Alcohol: Denies ETOH Use Drugs: Denies Drug Use Lives In: Home Constitutional: denies: chills, diaphoresis, fatigue, fever, malaise, sweats, weakness, others EENTM: denies: blurred vision, double vision, ear bleeding, ear discharge, ear drainage, ear pain, ear ringing, eye pain, eye redness, hearing loss, mouth pain, mouth swelling, nasal discharge, nose bleeding, nose congestion, nose pain, photophobia, tearing, throat pain, throat swelling, voice changes, others Respiratory: denies: cough, hemoptysis, orthopnea, SOB at rest, shortness of breath, SOB with excertion, stridor, wheezing, others Cardiovascular: denies: chest pain, dizzy spells, diaphoresis, Dyspnea on exertion, edema, irregular heart beat, left arm pain, lightheadedness, palpitations, PND, syncope, others Gastrointestinal: denies: abdomen distended, abdominal pain, blood streaked bowels, constipated, diarrhea, dysphagia, difficulty swallowing, hematemesis, melena, nausea, poor appetite, poor fluid intake, rectal bleeding, rectal pain, vomiting, others Genitourinary: denies: burning, dysuria, flank pain, frequency, hematuria, incontinence, penile discharge, penile sore, pain, testicle pain, testicle swelling, urgency, others Neurological: denies: dizziness, fainting, headache, left sided numbness, left sided weakness, numbness, paresthesia, pre-existing deficit, right sided numbness, right sided weakness, seizure, speech problems, tingling, tremors, weakness, others Musculoskeletal: denies: back pain, gout, joint pain, joint swelling, muscle pain, muscle stiffness, neck pain, others Integumetry: reports: lumps, rash; denies: bruises, change in color, change in hair/nails, dryness, laceration, lesions, wounds, others Allergic/Immunocompromised: reports: Hives, Itching; denies: Difficulty Healing, Frequent Infections, others Hematologic/Lymphatic: denies: anemia, blood clots, easy bleeding, easy bruising, swollen glands, others Endocrine: denies: excessive hunger, excessive sweating, excessive thirst, excessive urination, flushing, intolerance to cold, intolerance to heat, unexplained weight gain, unexplained weight loss, others Psychiatric: denies: anxiety, bipolar disorder, depression, hopeless, panic disorder, schizophrenia, sleepless, suicidal, others All Other Systems: Reviewed and Negative Physical Exam General Appearance: No Apparent Distress, Normal HEENT: Normal ENT Inspection, PERRL/EOMI, Pharynx Normal, TMs Normal Neck: Full Range of Motion, Non-Tender, Normal, Normal Inspection Respiratory: Chest Non-Tender, Lungs Clear, No Accessory Muscle Use, No Respiratory Distress, Normal Breath Sounds Cardiovascular: No Edema, No JVD, No Murmur, No Gallop, Normal Peripheral Pulses, Regular Rate/Rhythm Breast Exam: Deferred Gastrointestinal: No Organomegaly, Non Tender, No Pulsatile Mass, Normal Bowel Sounds, Soft Genitalia: Deferred Pelvic: Deferred Rectal: Deferred Extremities: No calf tenderness, Normal capillary refill, Normal inspection, Normal range of motion, Non-tender, No pedal edema Musculoskeletal : Apperance: Normal Neurologic: Alert, multifocal lens inspector II-XII nml as Tested, No Motor Deficits, Normal Affect, Normal Mood, No Sensory Deficits Cerebellar Function: Normal Reflexes: Normal Skin: Dry, Rash (ERYTHEMA SKIN RASH WITH HIVES ON UPPER AND LOWER BODY REGION, NO TENDERNESS, SWELLING AND DEFORMITY. ), Warm Peripheral Pulses: 2+ carotid (R), 2+ carotid (L) Lymphatic: No Adenopathy Was a procedure done? Was a procedure done?: No Differential Diagnosis (INTG) Differential Diagnosis: N/A Differential Diagnosis: Atopic dermatitis, Contact Dermatitis, Urticaria, Other (ALLERGIC REACTION) Differential Diagnosis: N/A Abscess: N/A Differential Diagnosis: N/A X-Ray, Labs, Meds, VS Vital Signs Date Time Temp Pulse Resp B/P (MAP) Pulse Ox O2 Delivery O2 Flow Rate FiO2 08/30/25 09:43 98.2 78 18 110/81 99 98.2 Current Medications Medications (Trade) Dose Ordered Sig/Estephania Route Start Time Stop Time Status Last Admin Epinephrine HCl 0.3 mg ONCE ONCE IM 08/30/25 10:00 08/30/25 10:01 DC 08/30/25 10:05 Methylprednisolone Sodium Succinate (Solu Medrol) 125 mg ONCE ONCE IM 08/30/25 10:00 08/30/25 10:01 DC 08/30/25 10:03 X-Ray, Labs, Meds, VS Comment EXTERNAL MEDICAL RECORDS REVIEWED: [NONE] INDEPENDENT HISTORIANS: [NONE] SOCIAL DETERMINANTS OF HEALTH: [NONE] LABS ORDERED: NONE REVIEWED AND INTERPRETED RESULTS: NONE IMAGING ORDERED: NONE TREATMENTS ORDERED: EPINEPHRINE 0.3 MG IM, SOLU-MEDROL 125 MG IM PROCEDURES PERFORMED: NONE CRITICAL CARE TIME: NONE I HAVE DISCUSSED THE PATIENT WITH THE ATTENDING PHYSICIAN DR. PASTOR AND HE AGREES WITH THE PATIENT'S PLAN OF CARE AND DISPOSITION. BASED ON HISTORY OF PRESENT ILLNESS, AND PHYSICAL EXAM, PATIENT WILL BE DISCHARGED HOME. DISCUSSED PLAN FOR DISCHARGE HOME WITH RX [MEDROL DOSEPAK AND [facility]ISTAR[facility]]. MEDICATION WARNINGS GIVEN. SHARED DECISION MAKING: PATIENT INSTRUCTED TO FOLLOW UP WITH PRIMARY CARE PROVIDER IN 1-2 DAYS FOR RE-EVALUATION OF SYMPTOMS. PATIENT VERBALIZES UNDERSTANDING TO RETURN TO ED FOR NEW OR WORSENING SYMPTOMS OR IF FOLLOW UP WITH PCP CANNOT BE OBTAINED. PATIENT FEELS COMFORTABLE GOING HOME AT THIS TIME. ALL QUESTIONS ADDRESSED AT TIME OF DISCHARGE. Time of 1ST Reevaluation: 10:30 Reevaluation 1ST: Improved Patient Education/Counseling: Diagnosis, Treatment, Need For Follow Up Family Education/Counseling: Diagnosis, Treatment, Need For Follow Up Medical Screening: No EMC Exist At This Time SEPSIS Sepsis Screen Date sepsis recognized/suspect: Aug 30, 2025 Time Sepsis recognized/suspect: 944 Recent Procedure: No On Antibiotic Therapy: No Respiratory Rate >20: No Heart Rate >90: No Temp<36 C (96.8 F) or >38.3 C: No SBP <90 or MAP <65 mmHG: No New Acute Mental Status Change: No Is the patient on CPAP, BIPAP,: No Vital Signs Date Time Temp Pulse Resp B/P (MAP) Pulse Ox O2 Delivery O2 Flow Rate FiO2 08/30/25 09:43 98.2 78 18 110/81 99 98.2 Medications Medications Dose Ordered Sig/Estephania Route Start Time Stop Time Status Last Admin Dose Admin Epinephrine HCl 0.3 mg ONCE ONCE IM 08/30/25 10:00 08/30/25 10:01 DC 08/30/25 10:05 Methylprednisolone Sodium Succinate 125 mg ONCE ONCE IM 08/30/25 10:00 08/30/25 10:01 DC 08/30/25 10:03 Departure 1 Departure Time of Disposition: 10:30 Impression: Primary Impression: Allergic reaction Qualified Codes: T78.40XA - Allergy, unspecified, initial encounter Disposition: HOME / SELF CARE / HOMELESS Condition: Stable Additional Instructions: FOLLOW-UP WITH PCP IN 1 TO 2 DAYS. TAKE MEDICATIONS PRESCRIBED. RETURN TO ED FOR ANY NEW OR WORSENING SYMPTOMS. e-Prescriptions Hydroxyzine Hcl (Hydroxyzine Hcl) 50 Mg Tab 1 TAB PO BID, #30 TAB Prov: MICHAEL LEONARDO 08/30/25 Methylprednisolone (Medrol Dosepak) 4 Mg Eladio 4 MG PO UD, #21 TAB UAD Prov: MICHAEL LEONARDO 08/30/25 Discharged With: Self Critical Care Note Critical Care Time?: No Stability Stability form required: No I personally scribed for MICHAEL LEONARDO ([email or web address]) on 08/30/25 at 10:00. Electronically submitted by Jamel Levin ([email or web address]). MICHAEL LEONARDO Aug 30, 2025 10:00
[2025-08-30] MEDS: methylPREDNISolone SOD SUCC 125 MG/2 ML VL IM ONE (10:03)
[2025-08-30] MEDS ORDERED: METH4PAK PO (10:19)
[2025-08-30] MEDS ORDERED: HYDR50TA69 PO (10:19)
[2025-08-30 10:23] VITALS: BP 115/78; PULSE 68; RESP 17; TEMP 98.1; O2SAT 99
== END 2025-08-30 10:25 | disposition home or self-care (01) ==
LOC: ER 09:36
DX: T78.49XA Other allergy, initial encounter (principal); E11.9 Type 2 diabetes mellitus without complications; Z79.84 Long term (current) use of oral hypoglycemic drugs; Z79.899 Other long term (current) drug therapy; X58.XXXA Exposure to other specified factors, initial encounter
CPT/HCPCS: 96372; 99284; J0169; J2919